=== PATIENT | male | born 1985 ===

== ENCOUNTER 2019-10-22 08:44 | Day surgery (SDC) | payer OTHER ==
[~2019-10-22 08:44] MED LIST: Bupivacaine 0.5%/EPINEPHrine 1:200,000 10 ML SDV ONE; Lactated Ringers 1,000 ML IV SCH; Vancomycin 1 GM SDV ONE; ceFAZolin 2 GM in Premix Bag 1 BAG IV SCH
[2019-10-22] MEDS ORDERED: Lidocaine 2% 5 ML SDV ONE (09:15)
[2019-10-22] MEDS ORDERED: fentaNYL 100 MCG/2 ML SDV ONE (09:15)
[2019-10-22] MEDS ORDERED: Bupivacaine 0.5%/EPINEPHrine 1:200,000 10 ML SDV ONE (09:15)
--- NOTE | 2019-10-22 09:41 | PCM.PREANE ---
Preanesthetic Assessment - Anesthesia/Transfusion/Family Hx Anesthesia History: No Prior Anesthesia Family History of Anesthesia Reaction: No Transfusion History: No Prior Transfusion(s) Intubation History: Unknown - Review of Systems General: No Symptoms Pulmonary: No Symptoms Cardiovascular: No Symptoms Gastrointestinal: No Symptoms Neurological: No Symptoms Other: Reports: None - Physical Assessment Height: 5 ft 8 in Weight: 83.915 kg ASA Class: 2 Mental Status: Alert & Oriented x3 Airway Class: Mallampati = 1 Dentition: Reports: Normal Dentition Thyro-Mental Finger Breadths: 3 Mouth Opening Finger Breadths: 3 ROM/Head Extension: Full Lungs: Clear to Auscultation, Normal Respiratory Effort Cardiovascular: Regular Rate, Regular Rhythm - Allergies Allergies/Adverse Reactions: Allergies Allergy/AdvReac Type Severity Reaction Status Date / Time No Known Allergies Allergy Verified 10/21/19 15:43 - Blood Blood Available: No - Anesthesia Plan Pre-Op Medication Ordered: None - Acknowledgements Anesthesia Type Planned: Regional Block (brachial plexus block (retroclavicular wit sedation) Pt an Appropriate Candidate for the Planned Anesthesia: Yes Alternatives and Risks of Anesthesia Discussed w Pt/Guardian: Yes Pt/Guardian Understands and Agrees with Anesthesia Plan: Yes PreAnesthesia Questionnaire - Past Health History Medical/Surgical History: Denies Medical/Surgical History - Past Surgical History Head Surgeries/Procedures: Reports: None - SUBSTANCE USE Smoking Status *Q: Current Every Day Smoker (< 1ppd) Tobacco Use Within Last Twelve Months: Cigarettes - HOME MEDS Home Medications: Home Meds . [No Known Home Meds] 10/21/19 [History] - CURRENT (IN HOUSE) MEDS Current Meds: Current Medications Cefazolin Sodium/Dextrose 2 gm (/ Premix) 50 mls @ 100 mls/hr IV ONCALL TONY Lactated Ringer's (Ringers, Lactated) 1,000 mls @ 100 mls/hr IV ASDIRECTED TONY Discontinued Medications Bupivacaine HCl/Epinephrine Bitart (Marcaine 0.5%/Epinephrine 1:200,000) Confirm Administered Dose 10 ml .ROUTE .STK-MED ONE Stop: 10/22/19 07:42 Bupivacaine HCl/Epinephrine Bitart (Marcaine 0.5%/Epinephrine 1:200,000) Confirm Administered Dose 20 ml .ROUTE .STK-MED ONE Stop: 10/22/19 09:16 Fentanyl (Sublimaze) Confirm Administered Dose 100 mcg .ROUTE .STK-MED ONE Stop: 10/22/19 09:16 Lidocaine (Xylocaine-Mpf 2%) Confirm Administered Dose 10 ml .ROUTE .STK-MED ONE Stop: 10/22/19 09:16 Vancomycin HCl (Vancomycin) Confirm Administered Dose 1 gm .ROUTE .STK-MED ONE Stop: 10/22/19 07:43
--- NOTE | 2019-10-22 11:33 | PCM.PRNOTE ---
- Free Text/Narrative Note: Left supraclavicular block explained to patient verbalized understanding of procedure and risks. Time out performed. Pt prepped with chloroprep and utrasound probe draped. Ultrasound guided supraclavicular block performed on Left. Bupivicaine 0.5 % with epi 20 ml with Lidocaine 2% 5 ml injected aspiration every 5 ml. 2 inch stimiplex needle 20 gauge used. Pt denied any signs and symptoms of toxicity. Monitors on throughout procedure. Neg parasthesia, negative hem. Pt tolerated procedure well. Fentanyl 100 mcg given for procedure.
[2019-10-22] MEDS ORDERED: Propofol 200 MG/20 ML SDV ONE (12:46)
[2019-10-22] MEDS ORDERED: Midazolam 1 MG/ML 2 ML SDV ONE (12:47)
[2019-10-22] MEDS ORDERED: ceFAZolin 1 GM Vial ONE (13:13)
--- NOTE | 2019-10-22 14:30 | PCM48HPAN ---
Post Anesthesia Note - EVALUATION WITHIN 48HRS OF ANESTHETIC Vital Signs in Normal Range: Yes Patient Participated in Evaluation: Yes Respiratory Function Stable: Yes Airway Patent: Yes Cardiovascular Function Stable: Yes Hydration Status Stable: Yes Pain Control Satisfactory: Yes Nausea and Vomiting Control Satisfactory: Yes Mental Status Recovered: Yes Vital Signs: Last Vital Signs Temp 37.1 C 10/22/19 09:20 Pulse 72 10/22/19 09:20 Resp 16 10/22/19 09:20 BP 128/80 10/22/19 09:20 Pulse Ox 96 10/22/19 09:20 - COMMENTS/OBSERVATIONS Free Text/Narrative:: No anesthesia problems
--- NOTE | 2019-10-22 14:31 | PCM.POSTAN ---
POST ANESTHESIA ASSESSMENT - MENTAL STATUS Mental Status: Alert, Oriented - VITAL SIGNS Vital Signs: Last Vital Signs Temp 37.1 C 10/22/19 09:20 Pulse 72 10/22/19 09:20 Resp 16 10/22/19 09:20 BP 128/80 10/22/19 09:20 Pulse Ox 96 10/22/19 09:20 - RESPIRATORY Respiratory Status: Respiratory Rate WNL, Airway Patent, O2 Saturation Stable - CARDIOVASCULAR CV Status: Pulse Rate WNL, Blood Pressure Stable - GASTROINTESTINAL GI Status: No Symptoms - PAIN Pain Score: 0 - POST OP HYDRATION Hydration Status: Adequate & Stable - OBSERVATIONS Free Text/Narrative:: No anesthesia problems
--- NOTE | 2019-10-22 16:01 | PCM.OPNOTE ---
- General Post-Op/Procedure Note Date of Surgery/Procedure: 10/22/19 Operative Procedure(s): left ring finger tuft fracture I and D, removal of bone , nail removal Pre Op Diagnosis: left ring finger tuft fracture Post-Op Diagnosis: Same Anesthesia Technique: Moderate Sedation, Regional Block Primary Surgeon: Andre Hernandez Wound Care Coordinator: Carlene Espinoza EBL in mLs: 5 Complications: None Condition: Good
--- NOTE | 2019-10-22 17:38 | OR ---
SURGEON: Andre Hernandez DATE OF PROCEDURE: 10/22/2019 PREOPERATIVE DIAGNOSIS: Left ring finger tuft fracture. POSTOPERATIVE DIAGNOSIS: Left ring finger tuft fracture. OPERATIVE PROCEDURE: Irrigation and debridement, removal of bone, removal of nail, and repair of laceration. PRIMARY SURGEON: Andre Hernandez DO VISION TEACHER: ROLAND Flores ROLE OF VISION TEACHER: Nurse practitioner, ROLAND Flores, played an essential role in assisting in this case, helping to position the patient, retract structures as needed, as well as suturing and cutting sutures as indicated. Her presence improved patient's safety and decreased operative time. ANESTHESIA: Regional block plus conscious sedation. FLUID: Lactated Ringer's solution. ESTIMATED BLOOD LOSS: 5 mL. COMPLICATIONS: None. SPECIMEN: None. DISCHARGE DISPOSITION: Stable to PACU. HISTORY AND INDICATIONS FOR THE PROCEDURE: The patient was seen preoperatively by myself in the clinic. He was injured at work. His left ring finger got caught between two boards. He was seen at [facility] who called asking for Orthopedics. I was gone. They then sent him to [facility] and then he came back. Risks and goals of the procedure were explained to the patient. Informed consent was obtained. DETAILS OF PROCEDURE: The patient was seen preoperatively by myself and the Anesthesia staff in the preoperative holding area where the operative site was marked. He was brought to the operative suite by the Anesthesia staff where conscious sedation was administered, regional block had already been applied in the preoperative holding area. The left upper extremity was then prepped and draped in a sterile manner. Time-out was called identifying the correct patient, the correct procedure, the correct site, and that antibiotics had been given within appropriate period of time. A Simpson was used to go underneath the cuticle as well as over the nail bed. The nail was then removed. The area was completely debrided. There was an area of large scab and blood formation, which was removed. The tip of the distal phalanx, which was broken off, was identified and removed using a blade and tenotomies. I then repaired the laceration on both sides of the cuticle and approximated these with 3-0 nylon sutures. I then irrigated copiously with Betadine infused irrigation. I applied some Adaptic under the nail to keep the nail bed open. I then placed multiple 5-0 interrupted nylon sutures. We then covered this with Betadine-soaked Adaptic, Kerlix, and tape. The patient was allowed to awaken from conscious sedation, taken to the PACU in stable condition. [id number] / MODL /[id number]
== END 2019-10-22 14:45 | disposition home or self-care (01) ==
LOC: MW.SDS 08:44
PROVIDERS: ATTEND Orthopaedic Surgery
DX: S62.635A Displaced fracture of distal phalanx of left ring finger, initial encounter for closed fracture (principal); F17.210 Nicotine dependence, cigarettes, uncomplicated; W23.0XXA Caught, crushed, jammed, or pinched between moving objects, initial encounter
CPT/HCPCS: J0690; J2001; J2250; J2704; J3010; J3370; J3490; J7120